=== PATIENT | female | born 2000 | race Two or more races ===

== ENCOUNTER 2025-04-16 03:20 | Inpatient (IN) | payer MEDICAID ==
[~2025-04-16] VITALS: Ht 165.1 cm; Wt 90.7 kg
[2025-04-16] MEDS ORDERED: PENICILLIN G POT 5MIL/D5 50ML 50 ML IV ONE (04:15)
[2025-04-16] MEDS ORDERED: LIDOCAINE 2%HCL (LOCAL ANESTH.) INJ 20ML MDV IJ PRN (04:15)
[2025-04-16] MEDS ORDERED: NALBUPHINE HCL 10 MG/1ml INJECTION IV PRN (04:15)
[2025-04-16 04:23] LABS: Urine Bacteria None Seen /hpf (None Seen)
[2025-04-16 04:49] LABS: Fern Testing Positive
[2025-04-16 04:52] LABS: Urine Blood 2+ /uL (Negative); Urine Clarity Clear (Clear); Urine Color Colorless (Yellow); Urine Protein, UAD Negative (Negative); Urine Specific Gravity 1.007 (1.001-1.035); Urine Squamous Epithelial Cell FEW /hpf (<5); Urine Urobilinogen Normal (Negative); Urine WBC 4 /HPF (0-5)
[2025-04-16 05:06] LABS: Amphetamine Screen, Urine Neg (NEGATIVE); Barbiturate Scree,Urine Neg (NEGATIVE); Benzodiazephine Screen, Urine Neg (NEGATIVE); Cannabinoid Screen, Urine Neg (NEGATIVE); Cocaine Screen, Urine Neg (NEGATIVE); Opiate Scree,Urine Neg (NEGATIVE); Phencyclidine Screen, Urine Neg (NEGATIVE)
[2025-04-16] MEDS: PHISODERM TOP SOLN 240ML BTL TOP PRN (05:06)
[2025-04-16] MEDS: WITCH HAZEL-GLYCERIN PAD TOP PRN (05:07)
[2025-04-16] MEDS: DERMOPLAST 60ML BOTTLE TOP PRN (05:07)
[2025-04-16 05:16] LABS: Alanine Aminotransferase 33 U/L (7-40); Albumin 4.4 g/dL (3.2-4.8); Anion Gap 11 (5-15); Aspartate Aminotransferase 35 U/L (13-40); BUN/Creatinine Ratio 11.8 (10.0-20.0); Bilirubin, Total 0.4 mg/dL (0.2-1.0); Calcium 9.2 mg/dL (8.7-10.4); Carbon Dioxide 21 mmol/L (20-31); Chloride 105 mmol/L (98-107); Glucose 75 mg/dL (74-106); Potassium 3.8 mmol/L (3.5-5.1); Sodium 137 mmol/L (136-145); Total Protein 7.1 g/dL (5.7-8.2)
[2025-04-16 05:17] LABS: INR 0.9 (0.9-1.15); Partial Thromboplastin Time 31.7 SEC (24.5-34.5); Prothrombin Time 9.6 sec (9.3-11.8)
[2025-04-16] MEDS ORDERED: ePHEDrine SULFATE 50 MG/ML AMP IV ONE (05:30)
--- NOTE | 2025-04-16 05:33 | DVH ---
LIMITED OB ULTRASOUND > 14 WKS: HISTORY: Labor TECHNIQUE: Multiple real-time grayscale images of the gravid uterus with duplex Doppler color flow an d M-mode spectral analysis. FINDINGS: IUP single live fetus at 36 weeks 3 days based on composite averages of the BPD, head circumference, abdominal circumference and femur length. Estimated weight 3622 grams. heart rate 139 beats per minute. CHRISTOPH 9.3 cm Cervix not visualized. Cephalic Presentation Posterior placenta without previa or abruption. IMPRESSION: 1. IUP single live fetus at 36 weeks 3 days without acute abnormality.
--- NOTE | 2025-04-16 05:44 | DVHHP2 ---
OB CC & HPI Date Date of Admission: April 16, 2025 Patient Identification: : 4 Para: 1 EDC: April 20, 2025 EGA: 39.3wks Chief Complaints: Reason for admission: rupture of membranes, other (in labor) History of Present Complaints 25yo IUP@39.3wks presents to OB triage with c/o LOF at 0200, clear fluid an d UCs that started then too. Pt wants an epidural. Denies VB/COLON/vision changes/RUQ pain. Endorses +FM. PNC at [facility], lab results reviewed on pts phone thru [facility]. Elevated 1 hr GTT and Fasting BG, pt never did 3 hr GTT. Dating based on LMP c/w first trimester sono, GBS negative. OB hx: x1, uncomplicated, 9lbs 7oz, denies shoulder dystocia SABx2 Past Medical History Cardiac: No pertinent Hx Pulmonary: No pertinent Hx Central Nervous System: No pertinent Hx GI: No pertinent Hx Hemotology/Oncology: No pertinent Hx Hepatobiliary: No pertinent Hx Psychiatric: No pertinent Hx Musculoskeletal: No pertinent Hx Rheumotologic: No pertinent Hx Infectious Disease: No peritnent Hx ENT: No pertinent Hx Renal/: No pertinent Hx Endocrine: No pertinent Hx Dermatology: No pertinent Hx Past Surgical History: No pertinent Hx OB History OB History Care: Good Care Ultrasounds: Normal mid trimester US Obstetrical Complications: Other (undiagnosed GDM, A1) Medical Complications: None Allergies: Coded Allergies: NO KNOWN ALLERGIES (Unverified , 04/16/25) Home Meds PNV Current Medications Current Medications Medications (Trade) Dose Ordered Sig/Diana Route PRN Reason Start Time Stop Time Status Last Admin Lactated Ringer's 1,000 ml @ 125 mls/hr Q8H IV 04/16/25 04:15 Nalbuphine HCl (Nubain) 10 mg Q4HP PRN IV MODERATE PAIN (4-6 PAIN SCALE) 04/16/25 04:15 Penicillin G Potassium [id number] units/Dextrose 50 ml @ 100 mls/hr Q4H IV 04/16/25 08:15 Witch Ansley (Tucks) 1 pad PRN PRN TOP PERINEAL AREA DISCOMFORT 04/16/25 04:15 04/16/25 05:07 Sodium Lauryl Sulfate (Phisoderm) 240 ml PRN PRN TOP PERINEAL AREA DISCOMFORT 04/16/25 04:15 04/16/25 05:06 Benzocaine (Dermoplast) 1 applic PRN PRN TOP PERINEAL AREA DISCOMFORT 04/16/25 04:15 04/16/25 05:07 Lidocaine HCl (Xylocaine) 20 ml ONCE PRN IJ PERINEAL AREA DISCOMFORT 04/16/25 04:15 Family & Social History Family/Social History Past Family/Social History: denies Blood Type: O+ Rubella: immune RPR/VDRL: Negative GBS Status: Negative HBsAG: Negative Review of Systems Constitutional: No symptom reported Ears, Nose, & Throat: No symptom reported Eyes: No symptom reported Pulmonary/Respiratory: No symptom reported Cardiovascular: No symptom reported Gastrointestinal: No symptom reported Genitourinary: No symptom reported Musculoskeletal: No symptom reported Skin: No symptom reported Psychiatric: No symptom reported Endocrine: No symptom reported Hemotologic/Lymphatic: No symptom reported OB Admission Exam Physical Exam Vitals: VSS except BP liable HEENT: TMs Normal, Fontanelles Normal, Nasal Mucosa Normal, Eyes non-injected, Oropharynx Normal, PERRLA, Moist Membranes, EOMI Heart: Rhythm Normal Lungs: Clear Abdomen: Gravid Extremities: Normal Reflexes: Normal Pelvic Exam: SVE by RN: 4/80/-2, clear fluid Membranes: Ruptured Amniotic Fluid: Clear Heart Rate: 120's Accelerations: Accelerations Present Decelerations: No Decelerations Longterm Variability: Average (6-25) Contractions on Admission: < 5 Minutes Apart Intensity: Moderate OB Plan Plan Admitting Diagnosis: SROM Plan: Expectant Management Other Plan: A: 25yo IUP@39.3wks In Labor SROM, clear lfuid GDM, A1 Category I EFM GBS negative P: Admit to L&D Informed consent obtained Expectant management for now due to frequent UCs monitoring per order preeclampsia labs ordered Routine labs ordered Pain mgmt PRN Frequent position changes in bed encouraged Limit SVE unless necessary Intrauterine resuscitation PRN Anticipate ALICIA is co-managing care with Dr. Da Silva. Visit Coding OBGYN Date of Service: April 17, 2025 Billing Provider: HARJEET BEE CNM POWERHOUSE MECHANIC HELPER Common Visit Codes: [id number] INP/OBS CARE (HIGH) POWERHOUSE MECHANIC HELPER Procedure Codes: 22433-62- NON-STRESS TEST HARJEET BEE [facility] April 16, 2025 05:43
[2025-04-16 05:53] LABS: Alkaline Phosphatase 202 U/L (46-116); Blood Urea Nitrogen 9 mg/dL (9-23)
[2025-04-16] MEDS: ROPIVACAINE HCL 200 ML ONE (05:53)
[2025-04-16] MEDS: LACTATED RINGER'S 1,000 ML IV ONE (05:53)
[2025-04-16] MEDS: LACTATED RINGER'S 1,000 ML IV SCH (05:53)
[2025-04-16 06:01] LABS: Basophils # (auto) 0.1 10 ^3/uL (0-0.2); Basophils % (auto) 0.7 % (0.0-2.0); Eosinophils # (auto) 0 10 ^3/uL (0-0.8); Eosinophils % (auto) 0.2 % (0.0-7.0); Hematocrit 35.7 % (36.0-46.0); Lymphocytes # (auto) 2.2 10 ^3/uL (0.4-5.4); Lymphocytes % (auto) 27.3 % (10.0-50.0); Mean Corpuscular Hemoglobin 29.4 pg (28.0-32.0); Mean Corpuscular Hgb Conc. 33.6 g/dL (32.0-36.0); Mean Corpuscular Volume 87.7 fL (80.0-100.0); Monocytes # (auto) 0.5 10 ^3/uL (0-1.3); Monocytes % (auto) 6.5 % (0.0-12.0); Neutrophils # (auto) 5.2 10 ^3/uL (1.6-8.6); Neutrophils % (auto) 65.3 % (37.0-80.0); Nucleated Red Blood Cells % 0.1 %; Platelet Count (auto) 228 10^3/uL (140-450); Red Blood Cells 4.07 10^6/uL (4.0-5.20); Red Cell Distribution Width 18.1 % (11.8-14.3); White Blood Cell 7.9 10^3/uL (4.4-10.8)
[2025-04-16 06:34] LABS: Creatinine, Urine 27.28 mg/dL (30.0-125.0); Urine Protein/Creatinine Ratio 0.22
[2025-04-16 06:39] LABS: Protein, Urine < 6.0 mg/dL (1-14)
[2025-04-16] MEDS ORDERED: PENICILLIN G POTASSIUM 2,500,000 UNITS in D5W 5% 50 ML IV SCH (08:15)
--- NOTE | 2025-04-16 09:22 | DVHPN2 ---
Chief Complaints Patient reports: No new complaints Nursing reports: No new complaints Objective Medications Current Medications Medications (Trade) Dose Ordered Sig/Diana Route PRN Reason Start Time Stop Time Status Last Admin Benzocaine (Dermoplast) 1 applic PRN PRN TOP PERINEAL AREA DISCOMFORT 04/16/25 04:15 04/16/25 05:07 Lidocaine HCl (Xylocaine) 20 ml ONCE PRN IJ PERINEAL AREA DISCOMFORT 04/16/25 04:15 Nalbuphine HCl (Nubain) 10 mg Q4HP PRN IV MODERATE PAIN (4-6 PAIN SCALE) 04/16/25 04:15 Oxytocin 1,000 ml @ 6 ml/hr Q24H IV 04/16/25 09:00 Penicillin G Potassium [id number] units/Dextrose 50 ml @ 100 mls/hr Q4H IV 04/16/25 08:15 Sodium Lauryl Sulfate (Phisoderm) 240 ml PRN PRN TOP PERINEAL AREA DISCOMFORT 04/16/25 04:15 04/16/25 05:06 Witch Ansley (Tucks) 1 pad PRN PRN TOP PERINEAL AREA DISCOMFORT 04/16/25 04:15 04/16/25 05:07 Others ve-4cm//80/-2 Studies Laboratory Tests 04/16/25 05:50 04/16/25 04:30 Test 04/16/25 04:30 Range/Units Serum Glucose 75 74-106 mg/dL Ass/Plan Assessment labor Plan start pitocin Visit Coding OBGYN Date of Service: April 16, 2025 Billing Provider: ANETTE DASILVA DO ARCADE TECHNICIAN Common Visit Codes: [id number] INP/OBS CARE(HIGH) ARCADE TECHNICIAN Procedure Codes: 30240-98- NON-STRESS TEST ANETTE DASILVA DO April 16, 2025 09:22
[2025-04-16] MEDS: LACT. RINGERS/OXYTOCIN 20UNITS 1,000 ML IV SCH (09:30)
[2025-04-16] MEDS: LACT. RINGERS/OXYTOCIN 20UNITS 500 ML IV ONE ×2 (11:17)
[2025-04-16] MEDS ORDERED: ONDANSETRON ODT 4 MG TAB PO PRN (11:30)
[2025-04-16] MEDS ORDERED: ACETAMINOPHEN 325 MG TAB PO PRN (11:30)
--- NOTE | 2025-04-16 13:14 | LDN2 ---
Labor and Delivery Note Date 04/16/25 Age 25 4 Para 2 AB 2 EDC 5-25 EGA 39wks Diagnosis labor Vaginal Delivery: VTX Vacuum Assisted: No Placenta: Spontaneous Apgars 9-9 Nuchal Cord Transected: No Amniotic Fluid: Clear Anesthesia epidural Episiotomy: No Extension: Yes Repaired with 2-0 chromic Labs Laboratory Tests 04/16/25 04:30: Hepatitis B Surface Antigen Negative, HIV (1&2) Antibody Negative, Rubella Antibody Positive Blood Bank 04/16/25 04:30: Blood Type O POSITIVE Complications none Conditions stable Comments/Significant Med Bharath spec exam no cxal lac, Visit Coding OBGYN Date of Service: April 16, 2025 Billing Provider: ANETTE DASILVA DO CEMENT FINISHER Common Visit Codes: 56034-APL/OBS SAME DATE (HIGH) CEMENT FINISHER Procedure Codes: 65336-JFI DELIVERY ONLY ANETTE DASILVA DO April 16, 2025 13:14
[2025-04-16 13:30] VITALS: BP 114/73; PULSE 75; RESP 18; TEMP 98.8
[2025-04-16 15:22] VITALS: BP 118/70; PULSE 66; RESP 16; TEMP 98.1; O2SAT 97
[2025-04-16 19:09] VITALS: BP 123/73; PULSE 76; RESP 18; TEMP 98.3; O2SAT 98
[2025-04-16] MEDS ORDERED: DOCUSATE SOD 100 MG CAP PO PRN (20:00)
[2025-04-16 22:56] VITALS: BP 117/77; PULSE 82; RESP 18; TEMP 98.2; O2SAT 97
--- NOTE | 2025-04-17 01:03 | DVHPN2 ---
Progress Note Date Seen: April 17, 2025 Subjective S: bleeding is less, eating food without issues, denies lightheaded/dizziness, pain well controlled with oral medications, no concerns with urinating, passing flatus, no BM yet, ambulating well, well vital signs Vital Sign Date Time Temp Pulse Resp B/P (MAP) Pulse Ox O2 Delivery O2 Flow Rate FiO2 04/16/25 22:56 98.2 82 18 117/77 (90) 97 98.2 04/16/25 19:09 Room Air Total Intake and Output 04/16/25 04/16/25 04/17/25 15:00 23:00 07:00 Intake Total 1119 ml Output Total 400 ml Balance 1119 ml -400 ml medications Current Medications Medications Dose Ordered Sig/Diana Route Start Time Stop Time Status Last Admin Dose Admin Nalbuphine HCl 10 mg Q4HP PRN IV 04/16/25 04:15 Cancel Penicillin G Potassium [id number] units/Dextrose 50 ml @ 100 mls/hr Q4H IV 04/16/25 08:15 Cancel Witch Ansley 1 pad PRN PRN TOP 04/16/25 04:15 04/16/25 05:07 1 PAD Sodium Lauryl Sulfate 240 ml PRN PRN TOP 04/16/25 04:15 04/16/25 05:06 240 ML Benzocaine 1 applic PRN PRN TOP 04/16/25 04:15 04/16/25 05:07 1 APPLIC Lidocaine HCl 20 ml ONCE PRN IJ 04/16/25 04:15 Cancel Ibuprofen 600 mg Q6HP PRN PO 04/16/25 11:30 Acetaminophen 650 mg Q4HP PRN PO 04/16/25 11:30 Ondansetron HCl 4 mg Q4HPRN PRN PO 04/16/25 11:30 Docusate Sodium 200 mg HS PRN PO 04/16/25 20:00 laboratory and microbiology Laboratory Tests 04/16/25 05:50 04/16/25 04:30 Test 04/16/25 04:30 Range/Units Serum Glucose 75 74-106 mg/dL Objective O: VSS Chest: heart sounds normal and lung sounds clear bilaterally Abd: soft, non-tender, fundus at U/firm/midline, active bowel sounds, no rebound or guarding Perineum: sutures intact, edges well approximated, no erythema/edema noted Ext: Non-tender, No edema, 2+ BLE DTRs Lochia: minimal See lab results Problems(with codes): (1) (normal spontaneous vaginal delivery) (2) Second degree perineal laceration during delivery Assessment/Plan A: 25yo now PPD#1 s/p P: D/C home today Rx sent to pharmacy precautions and preeclampsia warning signs reviewed Call [place] [facility] office to schedule PP visit Plan discussed with: Patient, Spouse Visit Coding OBGYN Date of Service: April 17, 2025 Billing Provider: HARJEET BEE CNM TOOL AND DIE MACHINIST Common Visit Codes: [id number] INP/OBS CARE(MOD) HARJEET BEE CNM April 17, 2025 01:03
--- NOTE | 2025-04-17 01:03 | DVHDS2 ---
Obstetrics Discharge Summary Obstetrics Discharge Summary Date of Admission: April 16, 2025 Date of Discharge: April 17, 2025 Reason For Admission: Onset of Labor (SROM) Procedures: NST, Ultrasound, Mgmt of Obstetrics Compli (GDM, A1) Procedures: Hct/date: (04/17/25), Hgb/date: (04/17/25) Operative Complicat: Laceration (second degree Perineal) Discharge Diagnosis: Term -Delivered Discharge Information: Activity (as tolerated, no heavy lifting and nothing in the vagina for 6 weeks), Diet (Routine), Medications (Rx sent), Instructions (Routine), Discharge to (Home), Accompanied by (partner), Discarge date (04/17/25) Visit Coding OBGYN Date of Service: April 17, 2025 Billing Provider: HARJEET BEE CNM PULVERIZER Common Visit Codes: 07375-UWE/OBS DISCH DAY <30MIN HARJEET BEE CNM April 17, 2025 01:03
[2025-04-17] MEDS ORDERED: PREN-96 PO (01:04)
[2025-04-17] MEDS ORDERED: DOCU-265 PO (01:04)
[2025-04-17] MEDS ORDERED: IBU600T PO (01:04)
[2025-04-17 02:34] VITALS: BP 105/60; PULSE 82; RESP 18; TEMP 98.1; O2SAT 98
[2025-04-17] MEDS: IBUPROFEN 600 MG TAB PO PRN (03:06)
[2025-04-17 07:00] VITALS: BP 118/63; PULSE 66; RESP 16; TEMP 98.2; O2SAT 99
[2025-04-17 07:27] LABS: Basophils # (auto) 0 10 ^3/uL (0-0.2); Basophils % (auto) 0.3 % (0.0-2.0); Eosinophils # (auto) 0.1 10 ^3/uL (0-0.8); Eosinophils % (auto) 0.6 % (0.0-7.0); Hematocrit 35.5 % (36.0-46.0); Hemoglobin 12.1 g/dL (12.2-16.2); Lymphocytes # (auto) 2.2 10 ^3/uL (0.4-5.4); Lymphocytes % (auto) 27.1 % (10.0-50.0); Mean Corpuscular Hemoglobin 29.8 pg (28.0-32.0); Mean Corpuscular Hgb Conc. 34.1 g/dL (32.0-36.0); Mean Corpuscular Volume 87.5 fL (80.0-100.0); Monocytes # (auto) 0.5 10 ^3/uL (0-1.3); Monocytes % (auto) 6.5 % (0.0-12.0); Neutrophils # (auto) 5.2 10 ^3/uL (1.6-8.6); Neutrophils % (auto) 65.5 % (37.0-80.0); Platelet Count (auto) 180 10^3/uL (140-450); Red Blood Cells 4.06 10^6/uL (4.0-5.20); Red Cell Distribution Width 18.2 % (11.8-14.3)
[2025-04-17 11:00] VITALS: BP 118/73; PULSE 65; RESP 16; TEMP 98.4; O2SAT 99
[2025-04-17 13:40] VITALS: BP 116/72; PULSE 70; RESP 16; TEMP 98.2; O2SAT 98
== END 2025-04-17 13:40 | disposition home or self-care (01) | DRG 560 ==
LOC: LDRP 03:20 → OBSVTOIN 04:00 → LDRP 04:31
PROVIDERS: ADMIT Nurse Practitioner Women's Health; ATTEND Nurse Practitioner Women's Health
PROC: 10E0XZZ Delivery of Products of Conception, External Approach (ICD-10-PCS; principal; 2025-04-16)
PROC: 0KQM0ZZ Repair Perineum Muscle, Open Approach (ICD-10-PCS; 2025-04-16)
PROC: 00HU33Z Insertion of Infusion Device into Spinal Canal, Percutaneous Approach (ICD-10-PCS; 2025-04-16)
PROC: 3E0R3BZ Introduction of Anesthetic Agent into Spinal Canal, Percutaneous Approach (ICD-10-PCS; 2025-04-16)
DX: O24.420 Gestational diabetes mellitus in childbirth, diet controlled (principal); Z37.0 Single live birth; O70.1 Second degree perineal laceration during delivery; Z3A.39 39 weeks gestation of pregnancy
CPT/HCPCS: 36415; 59409; 62282; 76805; 80053; 80307; 81001; 81002; 82570; 82948; 82962; 84112; 84156; 84550; 85025; 85610; 85730; 86703; 86762; 86780; 86803; 86850; 86900; 86901; 87340; 94760; 94762; 96360; 96361; 96365; 96366; G0378; J2540; J2590; J7060